=== PATIENT | male | born 1950 | race Caucasian/White ===

== ENCOUNTER → 2017-02-16 | Outpatient (CLI) | payer MEDICARE ==
[~2017-02-16] MED LIST: ASPI-496 PO; ATOR80TA75 PO; BUPR150T13 PO; CARV12.543 PO; CARV3.1212 PO; CARV6.2512 PO; CLOP75TA22 PO; FENO145T32 PO; FENO43CA3 PO; FLUT16SP NS; FURO20TA3 PO; HYDR-3307 PO; LEVO50TA5 PO; LISI-170 PO; MAGN64TA9 PO; MAGNESIUM PO; MATURE MULTIVITAMIN PO; OMEP-110 PO; PANT40TA3 PO; POTA10CA PO; POTA20PA8 PO; POTA20TA89 PO; REQUIP PO; SPIR25TA3 PO; VARE1TAB21 PO; VITA1CAP PO; VITAMIN B12 PO; VITAMIN C PO; ZOLP10TA PO; ZOLP10TA5 PO
== END | disposition home or self-care (01) ==
LOC: CFH 09:43
PROVIDERS: ATTEND Internal Medicine Cardiovascular Disease
DX: I42.9 Cardiomyopathy, unspecified (principal); I34.0 Nonrheumatic mitral (valve) insufficiency; Z72.0 Tobacco use
CPT/HCPCS: 93306

== ENCOUNTER → 2017-08-15 | Outpatient (CLI) | payer MEDICARE ==
[~2017-08-15] MED LIST changes: +ATOR-2 PO; -ATOR80TA75 PO; -CLOP75TA22 PO; +CLOP75TA52 PO; +POTA20PA25 PO; -POTA20PA8 PO
== END | disposition home or self-care (01) ==
LOC: CVU 10:40
PROVIDERS: ATTEND Internal Medicine Cardiovascular Disease
DX: I65.23 Occlusion and stenosis of bilateral carotid arteries (principal); E78.5 Hyperlipidemia, unspecified; I25.2 Old myocardial infarction; F17.200 Nicotine dependence, unspecified, uncomplicated
CPT/HCPCS: 93880